=== PATIENT | male | born 1950 | race Caucasian/White ===

== ENCOUNTER 2018-04-01 14:22 | Observation (INO) | payer OTHER ==
--- NOTE | 2018-04-01 14:42 | CPEKG ---
Heart Rate: 78 RR Interval: 769 P-R Interval: 156 QRSD Interval: 98 QT Interval: 400 QTC Interval: 456 P [place]: 65 QRS [place]: 79 T Wave [place]: 57 EKG Severity - NORMAL ECG - EKG Impression: SINUS RHYTHM Electronically Signed By: Durga Carey 03-Apr-2018 22:54:50
--- NOTE | 2018-04-01 14:49 | EDPHY ---
H & P Stated Complaint: CP/FLUSHED FEELING IN HEAD AND TIGHTNESS IN NECK Time Seen by Provider: 04/01/18 14:42 - Personal History Current Tetanus Diphtheria and Acellular Pertussis (TDAP): Yes - Medical/Surgical History Hx Asthma: No Hx Chronic Respiratory Disease: No Hx Diabetes: No Hx Cardiac Disease: Yes Hx Renal Disease: No Hx Cirrhosis: No Hx Alcoholism: No Hx HIV/AIDS: No Hx Splenectomy or Spleen Trauma: No Other PMH: CARDIAC STENTS/ MELANOMA BOWEL SURG - Social History Smoking Status: Never smoked Constitutional: Initial Vital Signs Temperature (C) 36.8 C 04/01/18 14:25 Heart Rate 77 04/01/18 14:25 Respiratory Rate 18 04/01/18 14:25 Blood Pressure 159/108 H 04/01/18 14:25 O2 Sat (%) 92 04/01/18 14:25 O2 Delivery Mode Room Air Allergies/Adverse Reactions: sulfamethoxazole [From Bactrim] Allergy (Verified 04/01/18 14:23) trimethoprim [From Bactrim] Allergy (Verified 04/01/18 14:23) Home Medications: Medication Instructions Recorded Atorvastatin Calcium 04/01/18 Carvedilol 04/01/18 Levothyroxine 04/01/18 Ramipril 04/01/18 Medical Decision Making - Diagnostics Imaging Results: Imaging Impressions Chest X-Ray 04/01/18 14:51 Impression: No acute findings in the chest. Imaging: I viewed and interpreted images myself ED Course/Re-evaluation: CHIEF COMPLAINT: Chest pain HISTORY OF PRESENT ILLNESS: The patient is a 68 y/o male with a history of 3 cardiac stents and melanoma ( on chronic steroids) complaining of radiating mid-sternal chest pain, onset this morning. The pain is now radiating to his neck and jaw and he feels flushed. While walking this pain is exacerbated. This pain does not feel similar to his symptoms prior to having the cardiac stents placed 10 years ago. Around one year ago he stopped taking his anticoagulants that he was placed on following the stent placement. He does take a baby Aspirin daily. Denies headache, numbness, paresthesias, fever, abdominal pain, urinary or bowel complaints. REVIEW OF SYSTEMS: A 10 point review of systems was performed and is negative with the exception of the elements mentioned in the history of present illness. PHYSICAL EXAM: HR, BP, O2 Sat, RR. Temp noted General Appearance: Alert, well hydrated, appropriate, and non-toxic appearing. Head: Atraumatic without scalp tenderness or obvious injury Eyes: Pupils equal, round, reactive to light and accommodation, EOMI, no trauma , no injection. Ears: Clear bilaterally, no perforation, normal landmarks Nose: Atraumatic, no rhinorrhea, clear. Throat: There is no erythema or exudates, no lesions, normal tonsils, mucus membranes moist. Neck: Supple, nontender, no lymphadenopathy. Respiratory: No retractions, no distress, no wheezes, and no accessory muscle use. Lungs are clear to auscultation bilaterally. Cardiovascular: Regular rate and rhythm, no murmurs, rubs, or gallops. Bilateral carotid, radial, dorsalis pedis, and posterior tibial pulses intact. Good capillary refill all extremities. Gastrointestinal: Abdomen is soft, nontender, non-distended, no masses, no rebound, no guarding, no peritoneal signs. Musculoskeletal: Normal active ROM of all extremities, atraumatic. Neurological: Alert, appropriate, and interactive. Non-focal neuro. Skin: No rashes, good turgor, no nodules on palpation. Past medical history: Hypercholesteremia Past surgical history: Cardiac stents x 3, melanoma bowel surgery Family history: Denies Social history: at bedside, visiting [place] from [place], retired DIAGNOSTICS/PROCEDURES/CRITICAL CARE TIME: EKG: The 12 lead EKG was interpreted by myself as sinus rhythm with a rate of 78 , inverted T-waves in V2. See hard copy and/or "tracemaster" electronic copy for interpretation. Chest x-ray: No acute findings. Repeat EKG:The 12 lead EKG was interpreted by myself. Sinus rhythm, possible lateral ST depression. See hard copy and/or "tracemaster" electronic copy for interpretation. DIFFERENTIAL DIAGNOSIS: The differential diagnosis for the patient's chest pain included but was not limited to myocardial ischemia, pulmonary embolus, chest wall pain, pleural inflammation, and pulmonary infectious causes. MEDICAL DECISION MAKING: The patient is a 68 y/o male with a history of 3 cardiac stents and melanoma ( on chronic steroids) presenting with radiating mid-sternal chest pain, onset this morning. He has a normal physical exam. EKG, labs, and chest x-ray ordered. 1437: EKG interpreted by myself as sinus rhythm with a rate of 78, inverted T- waves in V2. 1508: Patient has a negative troponin. 1512: Consulted with Dr. Holden, technical expert, regarding this patient. 1 Nitroglycerin administered. 1544: Echo at bedside. CHARLES Valadez for cardiology, at bedside. Repeat EKG shows some lateral ST depression. Patient is still symptomatic. 1657: Spoke with Dr. Holden, technical expert. Patient will have repeat troponin. He will not undergo cardiac catheterization at this time. Plan to administer 25mg PO metoprolol. Plan for admission for further observation. 1722: Consulted with Dr. Mendoza, hospitalist. She accepts admission for chest pain, acute coronary syndrome. - Data Points Laboratory Results: Laboratory Results 04/01/18 14:45 04/01/18 14:45 04/01/18 04/01/18 04/01/18 17:09 17:00 14:58 WBC RBC Hgb Hct MCV MCH MCHC RDW Plt Count MPV Neut % (Auto) Lymph % (Auto) [place] % (Auto) Eos % (Auto) Baso % (Auto) Nucleat RBC Rel Count Absolute Neuts (auto) Absolute Lymphs (auto) Absolute Monos (auto) Absolute Eos (auto) Absolute Basos (auto) Absolute Nucleated RBC Immature Gran % Immature Gran # PT INR APTT D-Dimer Sodium Potassium Chloride Carbon Dioxide Anion Gap BUN Creatinine Estimated GFR Glucose Calcium POC Troponin I 0.00 ng/mL ng/mL 0.00 ng/mL ng/mL (0.00-0.08) (0.00-0.08) Troponin I Cancelled NT-Pro-B Natriuret Pep 04/01/18 04/01/18 04/01/18 14:52 14:52 14:45 WBC RBC Hgb Hct MCV MCH MCHC RDW Plt Count MPV Neut % (Auto) Lymph % (Auto) [place] % (Auto) Eos % (Auto) Baso % (Auto) Nucleat RBC Rel Count Absolute Neuts (auto) Absolute Lymphs (auto) Absolute Monos (auto) Absolute Eos (auto) Absolute Basos (auto) Absolute Nucleated RBC Immature Gran % Immature Gran # PT 13.0 SEC SEC (12.0-15.0) INR 0.96 (0.83-1.16) APTT 30.1 SEC SEC (23.0-38.0) D-Dimer 0.71 ug/mLFEU H ug/mLFEU (0.00-0.50) Sodium 142 mEq/L mEq/L (135-145) Potassium 4.1 mEq/L mEq/L (3.3-5.0) Chloride 102 mEq/L mEq/L (97-110) Carbon Dioxide 33 mEq/l H mEq/l (22-31) Anion Gap 7 mEq/L L mEq/L (8-16) BUN 16 mg/dL mg/dL (7-23) Creatinine 0.8 mg/dL mg/dL (0.7-1.3) Estimated GFR > 60 Glucose 115 mg/dL H mg/dL (70-100) Calcium 9.0 mg/dL mg/dL (8.5-10.4) POC Troponin I Troponin I NT-Pro-B Natriuret Pep 91 pg/mL pg/mL (0-125) 04/01/18 14:45 WBC 6.36 10^3/uL 10^3/uL (3.80-9.50) RBC 4.19 10^6/uL L 10^6/uL (4.40-6.38) Hgb 12.9 g/dL L g/dL (13.7-17.5) Hct 39.0 % L % (40.0-51.0) MCV 93.1 fL fL (81.5-99.8) MCH 30.8 pg pg (27.9-34.1) MCHC 33.1 g/dL g/dL (32.4-36.7) RDW 12.5 % % (11.5-15.2) Plt Count 242 10^3/uL 10^3/uL (150-400) MPV 9.1 fL fL (8.7-11.7) Neut % (Auto) 73.4 % % (39.3-74.2) Lymph % (Auto) 17.6 % % (15.0-45.0) [place] % (Auto) 7.2 % % (4.5-13.0) Eos % (Auto) 1.1 % % (0.6-7.6) Baso % (Auto) 0.5 % % (0.3-1.7) Nucleat RBC Rel Count 0.0 % % (0.0-0.2) Absolute Neuts (auto) 4.67 10^3/uL 10^3/uL (1.70-6.50) Absolute Lymphs (auto) 1.12 10^3/uL 10^3/uL (1.00-3.00) Absolute Monos (auto) 0.46 10^3/uL 10^3/uL (0.30-0.80) Absolute Eos (auto) 0.07 10^3/uL 10^3/uL (0.03-0.40) Absolute Basos (auto) 0.03 10^3/uL 10^3/uL (0.02-0.10) Absolute Nucleated RBC 0.00 10^3/uL 10^3/uL (0-0.01) Immature Gran % 0.2 % % (0.0-1.1) Immature Gran # 0.01 10^3/uL 10^3/uL (0.00-0.10) PT INR APTT D-Dimer Sodium Potassium Chloride Carbon Dioxide Anion Gap BUN Creatinine Estimated GFR Glucose Calcium POC Troponin I Troponin I NT-Pro-B Natriuret Pep Medications Given: Discontinued Medications Metoprolol Tartrate (Lopressor) 25 mg PO EDNOW ONE Stop: 04/01/18 17:00 Last Admin: 04/01/18 17:21 Dose: 25 mg Nitroglycerin (Nitro-Bid 2%) 1 inch TP EDNOW ONE Stop: 04/01/18 15:15 Last Admin: 04/01/18 15:24 Dose: 1 inch Point of Care Test Results: Chemistry 04/01/18 04/01/18 17:09 14:58 POC Troponin I 0.00 ng/mL ng/mL 0.00 ng/mL ng/mL (0.00-0.08) (0.00-0.08) Departure - Departure Disposition: [facility] Inpatient Acute Clinical Impression: Acute coronary syndrome Chest pain Qualifiers: Chest pain type: other chest pain Qualified Code(s): R07.89 - Other chest pain Condition: Fair Referrals: Patient,NotPresent [Unknown] - As per Instructions Report Scribed for: Pan Barber Report Scribed by: Esme Burton Date of Report: 04/01/18 Time of Report: 14:46
[2018-04-01 14:57] LABS: PLATELET COUNT 242 10^3/uL (150-400)
[2018-04-01] MEDS ORDERED: NITROGLYCERIN 2% 1 GM PACKET TP ONE (15:14)
[2018-04-01 15:42] LABS: INR 0.96 (0.83-1.16)
--- NOTE | 2018-04-01 16:11 | ECHO ---
[email or web address] [address] [address] Main: [phone] Fax: [email or web address] Echocardiogram Name: HARJINDER PHILIP MR#: [id number] Study Date: 04/01/2018 Study Time: 03:52 PM Date of : 1950 Age: 68 year(s) Height: 180.3 cm (71 in.) Weight: 93.44 kg (206 lb.) BSA: 2.14 m2 Gender: Male Examination: Echo Indication: Chest Pain, Hx of stents Image Quality: Contrast: Requested by: Pan Barber BP: 128 mmHg/94 mmHg Heart Rate: Rhythm: Normal sinus rhythm Indication: Chest Pain, Hx of stents Procedure Staff Package Delivery Room Service Runner: Sina Nelson RDCS Reading Physician: Donya Holden MD Requesting Provider: Conclusions: Normal size left ventricle. Mild concentric LV hypertrophy. Normal global systolic LV function. EF is 77 %. Normal size right ventricle. Normal RV function. No significant valvular disease. No prior echo Measurements: Chambers Valvular Assessment AV/MV Valvular Assessment TV/PV Normal Normal Normal Name Value Range Name Value Range Name Value Range Ao Danielle (MM): 3.2 cm (2.2 cm-3.7 MV E Vmax: 0.74 m/s ( - ) PV Vmax: 1.09 m/s (0.6 m/s-0.9 cm) MV A Vmax: 0.65 m/s ( - ) m/s) IVSd (2D): 1.1 cm (0.6 cm-1.1 MV E/A: 1.14 ( - ) PV PGmax: 5 mmHg ( - ) cm) LVDd (2D): 4.2 cm (4.2 cm-5.9 cm) LVDs (2D): 2.3 cm (2.1 cm-4 cm) LVPWd (2D): 1.1 cm (0.6 cm-1 cm) LVEF (2D): 77 (>=54 %) Continued Measurements: Chambers Valvular Assessment AV/MV Name Value Name Value LADs Lon.7 cm MV E/E' Septal: 8.50 LA Area: 14.1 cm2 MV E/E' Lateral: 12.30 Patient: HARJINDER PHILIP Study Date: 04/01/2018 Page 1 of 2 03:52 PM Findings: Left Ventricle: Normal size left ventricle. Mild concentric LV hypertrophy. Normal global systolic LV function. EF is 77 %. No regional wall motion abnormality. Grade 2 diastolic dysfunction (pseudonormalized LV filling pattern). Right Ventricle: Normal size right ventricle. Normal RV function. Left Atrium: The left atrium is normal in size. Right Atrium: The right atrium is normal in size. Mitral Valve: The mitral valve is normal in appearance and function. There is no mitral valve regurgitation. Aortic Valve: The aortic valve is normal in appearance and function. There is no aortic valve regurgitation. Tricuspid Valve: The tricuspid valve is normal in appearance and function. There is no tricuspid valve regurgitation. Pulmonic Valve: The pulmonic valve is normal in appearance and function. Aorta: The aorta is normal. Pericardium: No pericardial effusion. Exam Comments: (No Signature Object) Patient: HARJINDER PHILIP Study Date: 04/01/2018 Page 2 of 2 03:52 PM D:_[id number]
--- NOTE | 2018-04-01 16:31 | CPEKG ---
Heart Rate: 70 RR Interval: 857 P-R Interval: 164 QRSD Interval: 96 QT Interval: 404 QTC Interval: 436 P [place]: 54 QRS [place]: 75 T Wave [place]: 75 EKG Severity - BORDERLINE ECG - EKG Impression: SINUS RHYTHM EKG Impression: BORDERLINE T ABNORMALITIES, ANT-LAT LEADS Electronically Signed By: Amber Leach 04-Apr-2018 14:35:20
[2018-04-01] MEDS ORDERED: METOPROLOL TARTRATE 25 MG TAB PO ONE (16:59)
[2018-04-01] MEDS ORDERED: ONDANSETRON 4 MG/2 ML VIAL IVP PRN (17:29)
[2018-04-01] MEDS ORDERED: ONDANSETRON DISINTEGRATING 4 MG TAB PO PRN (17:29)
[2018-04-01] MEDS ORDERED: ACETAMINOPHEN 325 MG TAB PO PRN (17:29)
--- NOTE | 2018-04-01 18:11 | GCON ---
[f rep st] CONSULTATION CARDIOLOGY CONSULTATION. SUPERVISING MANAGER PHP: Dr. Donya Holden. INDICATION: Neck flushing with mild jaw pressure, with mildly abnormal electrocardiogram with patient with previous history of cardiac disease and stents. REFERRING PHYSICIAN: Dr. Pan Barber of Emergency Department Services. HISTORY OF PRESENT ILLNESS: Mr. Grimm is a 68-year-old male who reports significant past history that includes coronary artery disease, with previous stenting of the LAD and circumflex artery approximately 15 years ago while he lived in [place]. He also reports significant history of hypertension, hyperlipidemia, and history of melanoma cancer first diagnosed 5 years ago, with a recurrence 3 years ago. He reports he did have a PET scan done approximately a week ago, and was told he was free of any signs at this time. He is currently visiting from [place], where he lives. He reports arriving to [place] last evening and going to his hotel in [place], having a mild dinner, and then when he was carrying his bags up to his bedroom last evening, developing a lower neck pressure/pain radiating on both sides up to his jaws, with also a flush sensation. He reports no chest pressure or pain. He did report potentially mild shortness of breath with the symptoms, but denies any palpitations and no nausea or diaphoresis. He reported this was a first time event for him. He did go up and rest and take a shower, and reporting symptoms did subside. He reports waking up this morning feeling fine , visiting [employer] and touring, walking around, and later after a few hours , developing similar symptoms while walking on [employer]. He did go to urgent care, who gave him 4 aspirin, and told him to come to [facility] for further evaluation. Upon arrival, he reports the pressure had significantly subsided, reporting only a mild sensation in his left neck at the time of my examination. He did undergo electrocardiogram, which initial EKG showed sinus rhythm, normal axis, with mildly flattened to inverted T-waves in V2, but no other acute ST or T- wave abnormalities. His initial troponin was negative. An echocardiogram was done at this time, and it was noted that he had a normal LV systolic function with an ejection fraction of 77%. He reports when he was asked how his current symptoms in comparison to his previous symptoms that he had prior to his stenting, he describes those symptoms as a more midsternal chest pressure with increased shortness of breath and some nausea, which he has not experienced with his most recent 2 episodes. He reports prior to this episode he has been in his normal state of health. He reports no recent fevers, chills, or night sweats. He denies any orthopnea, PND, edema, near-syncope, or syncopal events. Reports no symptoms suggestive of TIA or CVA. PAST MEDICAL HISTORY: Patient with significant past medical history that includes CAD, hypertension, hyperlipidemia, melanoma. PAST SURGICAL HISTORY: Includes 2 surgeries for his melanoma cancer, one 5 years ago and one 3 years ago; cholecystectomy; percutaneous coronary intervention 15 years ago with stent implantation. He does have his stent cards with him, which it appears that he had a 2.5 x 13 Cypher stent implanted into his circumflex and a 3.5 x 33 stent implanted to his LAD. FAMILY HISTORY: Patient reports besides his past history of early onset of CAD , he has no significant family history of coronary artery disease at early onset age, but does report family history of hypertension, reporting mother, father, and brother who is 5 years older than him. He also reports father passing away at age 50 of colon cancer. SOCIAL HISTORY: He is retired. He used to be a contractor. He is . He has no children. He denies any history of tobacco abuse. He does report rare alcohol use. Denies any illicit drug use. ALLERGIES: Reported allergies to Bactrim. MEDICATIONS: At home, he is uncertain of the dosage, but he is on atorvastatin , carvedilol, levothyroxine, ramipril. He also reports he is on a medication that he is uncertain of the name for his history of melanoma cancer. REVIEW OF SYSTEMS: A 10-point review of systems done on this patient all negative except as mentioned above. PHYSICAL EXAMINATION: GENERAL APPEARANCE: Medium built, mildly obese, male. He is alert and oriented to person, place, time, situation, and appears to be under no acute distress. VITAL SIGNS: Current vital signs are blood pressure of 132/98, heart rate of 77, sinus rhythm while on the monitor. Respirations are 18, saturating 95% on room air. Noted on admission, temperature of 36.8 degrees Celsius. HEENT: Head is normocephalic. Lips and tongue are pink and moist with no signs of cyanosis. Conjunctivae pink. NECK: Trachea is midline, +2 carotid pulses bilateral. No auscultated bruits, no jugular vein distention. RESPIRATORY: Lungs are clear to auscultation, no rhonchi, rales, or wheezes. No accessory muscle use. No intercostal muscle retraction noted. CARDIAC: Regular rate, regular rhythm, S1, S2, no S3, S4, gallops, rubs, or murmurs noted. ABDOMEN: Soft, nontender, bowel sounds x4 quadrants, no organomegaly, no palpable masses. SKIN: [place], warm, dry, no cyanosis, no clubbing, no peripheral edema. VASCULAR: +2 carotids bilateral, + 2 radials bilateral, +1 dorsal pedal and posterior tibial pulses bilateral. LABORATORY STUDIES: Laboratory studies drawn today show WBC of 6.36, hemoglobin of 12.9, hematocrit of 39.0, platelet count of 242. INR of 0.96. Noted mildly elevated D-dimer at 0.71. Sodium 142, potassium 4.1, chloride 102 , CO2 of 33, BUN 16, creatinine 0.8, glucose 115, calcium 9.0. Initial troponin of 0.00 and proBNP of 91. IMAGING STUDIES: Initial electrocardiogram as mentioned above. Repeated electrocardiogram done today at 1627 shows sinus rhythm, normal axis, noted inverted T-waves in V1 and V2, with possible nonspecific T-wave abnormalities in lateral leads. Chest x-ray showing no acute findings. Echocardiogram showing normal LV size with mild concentric LVH, normal LV systolic function. EF was estimated at 77%. Normal RV size, normal RV function , no significant valvular heart disease. ASSESSMENT AND PLAN: 1. Jaw pressure with flushing sensation: Patient reports this is a new symptom , it did come on with exertion 2 times in the last 24 hours. It is not similar pressure as to what he had prior to his stenting. It is not associated with nausea or diaphoresis. He does have known history of coronary artery disease with previous stenting of the left anterior descending and the circumflex. He reports no episodes of chest pressure or pain. He is noted to have a normal troponin level. Symptoms are somewhat atypical. Potentially could be related to altitude and dehydration. But with his past history of coronary artery disease, does raise concerns. We recommend that he be admitted to the PCU, for overnight observation. There, he should have cycle troponin levels. If they are positive, we will plan for him to have a cardiac catheterization. If negative, then have him undergo ETT MPI study. He will receive a dose of metoprolol tartrate here in the emergency department. We will also hydrate him gently with IV fluid. He will be made NPO after midnight, in case he may need cardiac catheterization. Patient with mildly elevated D-dimer. Plan for CT of chest. 2. History of coronary artery disease: Patient reports new jaw as mentioned above pain, but denies similar symptoms as to what he had prior to his ischemic events. Would continue patient on current antiplatelet therapy of aspirin, and resume his home beta-edinson and SURYA-inhibitor, after pharmacy has reconcile his medications. Troponins as mentioned above. If he does develop chest pressure, or has significant elevated troponins, a cardiac catheterization can be done more urgently. 3. Hypertension: Blood pressure mildly elevated. Again resume home medications. Monitor. May adjust his home medications if necessary, once they are clarified by pharmacy. 4. Hyperlipidemia: Continue on home dose of atorvastatin when reconciled by pharmacy. Patient assessment plan or discussed with Dr. Barber of the emergency department. Patient will be admitted to the hospitalist services. Thank you for this consultation. We will be glad to follow along with this patient's care with you.. /[id number]/[id number] MTDD
[2018-04-01] MEDS ORDERED: NS 1,000 ML IV ONE (18:21)
[2018-04-01] MEDS ORDERED: IOPAMIDOL (ISOVUE 370) 100 ML BTL IV ONE (18:53)
[2018-04-01] MEDS ORDERED: NS 1,000 ML IV SCH (19:00)
--- NOTE | 2018-04-01 19:36 | GHP ---
[f rep st] HISTORY AND PHYSICAL DATE OF ADMISSION: 04/01/2018 CHIEF COMPLAINT: Shortness of breath, neck tightness. HISTORY OF PRESENT ILLNESS: A 68-year-old male with history of coronary artery disease with 3 stents 15 years ago, hyperlipidemia, hypertension, presenting with shortness of breath. [facility]. After dinner, he was going to the car, bring ing their bags in, and noticed shortness of breath. His face flushed and tightness in his neck. He cannot tell me how long this lasted. There was no chest pain or associated arm radiation, numbness, or tingling. He went to bed without issue, ate breakfast. [place] [facility] [place] [facility] to get in from the rain and developed the same set of symptoms. He did not drink mu ch water today but had several glasses of iced tea and coffee. No fevers, chills, or sweats. Has 10 stools a day, which has been chronic for him. No hematochezia or melena. REVIEW OF SYSTEMS: I completed a 10-point review of systems, negative except as in HPI. PAST MEDICAL HISTORY: Melanoma, status post chemo, status post immune-modulating medication, a coupl e surgeries, coronary disease, 3 stents 15 years ago, hyperlipidemia, hypertension, adrenal insuffici ency, history of diverticulitis. PAST SURGICAL HISTORY: Cholecystectomy, partial colectomy secondary to diverticulitis. FAMILY HISTORY: Father with colon cancer. Mother healthy at 86. ALLERGIES: Bactrim. HOME MEDICATIONS: Ramipril, levothyroxine, Coreg, atorvastatin. PHYSICAL EXAMINATION: VITAL SIGNS: Temperature 36.8, blood pressure is 159/108, now 152/90, heart r ate in the 60s, respirations 16, and 98% on 2 L. GENERAL: He is an overweight male in no acute dist ress. HEENT: PERRLA. Moist mucous membranes. CV: Regular rate and rhythm. LUNGS: Clear. ABDOMEN : Soft, nontender, nondistended. Positive bowel sounds. : No Pagan. MUSCULOSKELETAL: 5/5 upper lower extremity strength. NEURO: 2 through 12 intact. PSYCH: Alert and oriented x3. LABS: D-dimer is 0.71. INR is 0.6. Sodium 142, potassium 4.1, chloride 102, carbon dioxide 33, BUN is 16, creatinine 0.8, glucose 115, calcium 9. Troponin 0.00. BNP is 91. WBC 6, hemoglobin 12, he matocrit 39, platelets 242. Chest x-ray is personally reviewed by me. No effusion. EKG was personally reviewed by me. T-wave inversion in II, flattening in V3. Echocardiogram, normal EF. No old to compare. ASSESSMENT AND PLAN: Problems: 1. Shortness of breath: Differential, acute coronary syndrome versus pulmonary embolism versus alti tude sickness. Initial troponin and echocardiogram negative. D-dimer is elevated. CTA is pending. Was evaluated by Cardiology. We will monitor overnight stress test in the morning. 2. Coronary artery disease. Continue beta edinson, statin. 3. History of melanoma, stable. 4. Hypertension. Continue lisinopril. 5. Deep venous thrombosis prophylaxis with Lovenox. DISPOSITION: Patient warrants observation, admission, for possible anginal equivalent requiring seri al troponin, telemetry, and cardiac evaluation. /[id number]/MODL
[2018-04-01] MEDS ORDERED: ATORVASTATIN CALCIUM 40 MG TAB PO SCH (21:00)
[2018-04-01] MEDS: CARVEDILOL 3.125 MG TAB PO SCH (21:25)
[2018-04-02] MEDS ORDERED: LEVOTHYROXINE 112 MCG TAB PO SCH (06:00)
[2018-04-02] MEDS ORDERED: NITROGLYCERIN 0.4 MG BTL SL ONE (07:56)
[2018-04-02] MEDS ORDERED: MULTIVITAMINS 1 EACH TAB PO SCH (09:00)
[2018-04-02] MEDS ORDERED: HYDROCORTISONE 10 MG TAB PO SCH (09:00)
[2018-04-02] MEDS ORDERED: Lactobacillus Acidophilus [Probiotic] 1 EACH PO SCH (09:00)
[2018-04-02] MEDS ORDERED: ENOXAPARIN 40 MG/0.4 ML SYR SC SCH (09:00)
[2018-04-02] MEDS ORDERED: RAMIPRIL 5 MG CAP PO SCH ×2 (09:00)
[2018-04-02] MEDS ORDERED: REGADENOSON 0.4 MG/5 ML SYR IVP ONE ×2 (09:02→09:57)
--- NOTE | 2018-04-02 09:22 | SOAPPROG ---
CHARAN Progress Note Assessment/Plan: Assessment:1. sob..no evidence of mi or chf...nuc tm today...if normal then ok from standpoint 2. anemia..no active bleeding...? chronicity...? contributing to sob Plan:1. nuc tm today 04/02/18 09:20 Subjective: pt still with some oxugen desats requiring oxygen...no evidence of mi or arrhythmia....nuclear tm pending tosay Objective: Vital Signs Temp Pulse Resp BP Pulse Ox 37.3 C 87 19 152/85 H 91 L 04/02/18 08:02 04/02/18 08:02 04/02/18 08:02 04/02/18 08:02 04/02/18 08:02 04/01/18 04/02/18 04/03/18 05:59 05:59 05:59 Intake Total 600 Balance 600 PT 13.0 SEC (12.0-15.0) 04/01/18 14:52 INR 0.96 (0.83-1.16) 04/01/18 14:52 Physical Exam - Physical Exam Respiratory: lungs clear Cardiac/Chest: regular rate, rhythm, No edema, No JVD ICD10 Worksheet Patient Problems: Problems Problem Status Onset Acute coronary syndrome Acute Chest pain Acute
[2018-04-02 11:41] VITALS: BP 99/62
--- NOTE | 2018-04-02 12:00 | ASMTCMCOM ---
CM Note CM Note Notes: 04/02/2018 Case Management Note Pt admitted for evaluation of acute coronary syndrome. Met w/pt. JULIEN signed. Pt is independent in ADL's. Pt is to [facility] [phone]. There are no case management d/c needs identified. Case Management d/c poc: independent with follow up as directed. Case Management available if needs change. Date Signed: 04/02/2018 11:59 AM Electronically Signed By:Tootie Pedro RN
--- NOTE | 2018-04-02 13:09 | CPR ---
[f rep st] NONINVASIVE CARDIAC PROCEDURE REPORT DATE OF PROCEDURE: 04/01/2018 PROCEDURE: Exercise treadmill MPI study. SUPERVISING MEAT GRADER: Dr. Clifford Aguilar. INDICATION FOR PROCEDURE: Known history of coronary artery disease, reporting neck . PRE: After obtaining informed consent, the patient was placed on electrocardiogram. Initial EKG shows flattened T-wave in V2. Patient denies of any chest pain, pressure, or shortness of breath. Reports no jaw pain or symptoms that he had prior to admission. Initial vital signs: Blood pressure was 110/60, saturation 91% on room air. STRESS: 1. The patient was placed on exercise treadmill, following standard Dylon protocol, patient exercised for 3 minutes 17 seconds. 2. 4.6 METS. 3. Obtained a heart rate of 153 beats per minute, which was 99% of MPHR. 4. The patient had submillimeter upsloping ST depression in inferior lateral leads. Not equivocal for ischemia. 5. Patient reported head pressure, but no jaw, neck pain or chest pressure. 6. Patient's BP response at rest 110/60, peak 150/80. 7. The patient did note to have SpO2 drop to 84% at peak exercise on room air. 8. No arrhythmias were noted. 9. Test was stopped due to maximum effort. 10. Garcia treadmill score of 3 placing him at intermediate risk RECOVERY: Patient recovered for 5 minutes with EKG and heart rate returning back to baseline. Patient did report improvement in head pressure, remained asymptomatic of chest pressure or pain. Final blood pressure of 118/60. Vital signs are stable. He was taken to Nuclear Medicine for post-stress imaging. IMPRESSION: 68-year-old male with previous history of coronary artery disease visiting from [facility] to [place]. Reporting episodes of neck pain and head pressure with some exertion prior 2 days. Patient also reports symptoms are significantly different compared with chest pressure that he had prior to chest pressure pain. Garcia treadmill score: No significant ST changes at peak exercise suggesting of ischemia, but intermediate Garcia treadmill score due to poor exercise effort. Post-stress imaging pending. Results discussed with both Jeff Medina, and Dr. Pemberton of hospital services. /[id number]/MODL MTDD
[2018-04-02] MEDS: CARVEDILOL 3.125 MG TAB PO SCH (14:31)
--- NOTE | 2018-04-02 16:26 | PDHOMEO2F ---
Home Oxygen Face to Face Home Orders: I certify that a physician or a nurse practitioner or physician's administrative assistant receptionist has had a [id number] encounter with this patient on the date of this order due to the diagnosis listed, which relates to the primary reason the patient requires home oxygen. Alternative treatments have been tried, or considered, and deemed ineffective. It is anticipated that supplemental oxygen will result in improvement with treatment. Home oxygen qualifying diagnosis: hypoventilation syndrome, hypoxic respiratory failure. SpO2 on room air (%): 75 Frequency of home oxygen needed: continuous Home oxygen liters per minute: 2 Home oxygen delivery device: nasal cannula Concentrator: Yes E-tanks for mobility and back up: Yes If ordering portable O2, is the patient mobile in the home?: Yes I certify that, based on these findings, the home oxygen is medically necessary for this patient for the following length of time. Length of time home oxygen needed: 1 week (Pt going back to [place] and not hypoxic at sea level.)
--- NOTE | 2018-04-02 16:37 | ASMTDCNOTE ---
Case Management Discharge Discharge Order Complete? Answers: Yes Patient to Obtain Answers: Independently Medications Transportation Arranged Answers: Family/Friends Family Notified Answers: Yes Discharge Comments Notes: 04/02/2018 Case Management Note Pt will d/c to hotel with his . Plans to fly home to [place] tomorrow. O2 has been arranged. No further case management d/c needs identified. Date Signed: 04/02/2018 04:36 PM Electronically Signed By:Tootie Pedro RN
--- NOTE | 2018-04-02 16:37 | ASDISCHSUM ---
Discharge Information Plan Status:Home with No Needs Medically Cleared to Leave:04/02/2018 Discharge Date:04/02/2018 CM D/C Disposition:Home, Routine, Self-Care ADT D/C Disposition:Home, Routine, Self-Care Projected Discharge Date:04/02/2018 Transportation at D/C: Discharge Delay Reason: Follow-Up Date:04/02/2018 Discharge Slot: Final Diagnosis: Placement Information Patient Contact Information Contact Name:HAMILTON Relationship: Address:[address] [place] Work Phone: City:[facility] Phone: [facility]/Zip Code:[place] [address] Email: Financial Information Financial Class:Medicare Advantage Plans Primary Plan Desc:RASHID MEDICARE ADV Primary Plan Number:[id number] Secondary Plan Desc: Secondary Plan Number: Assessment Information [facility] CM Progress Note CM Note CM Note Notes: 04/02/2018 Case Management Note Pt admitted for evaluation of acute coronary syndrome. Met w/pt. ANAYA signed. Pt is independent in ADL's. Pt is to [facility] [phone]. There are no case management d/c needs identified. Case Management d/c poc: independent with follow up as directed. Case Management available if needs change. Date Signed: 04/02/2018 11:59 AM Electronically Signed By:Tootie Pedro RN LACE LACE Length of stay for Answers: 1 day current admission Acuity / Level of Answers: No Care: Did the patient have an inpatient admission? Comorbidities - select Answers: Any tumor (including all that apply lymphoma or leukemia) Coronary Artery Disease Other Notes: cardiac stents x 3, hyperlipidemia, adre nal insufficiency, h/o diverticulitis # of Emergency department Answers: 1-2 visits in the last 6 months Score: 7 Date Signed: 04/02/2018 04:34 PM Electronically Signed By:Tootie Pedro RN Case Management Discharge Plan Note Case Management Discharge Discharge Order Complete? Answers: Yes Patient to Obtain Answers: Independently Medications Transportation Arranged Answers: Family/Friends Family Notified Answers: Yes Discharge Comments Notes: 04/02/2018 Case Management Note Pt will d/c to [facility] with his . Plans to fly home to [place] tomorrow. O2 has been arranged. No further case management d/c needs identified. Date Signed: 04/02/2018 04:36 PM Electronically Signed By:Tootie Pedro RN Intervention Information Intervention Type:*JULIEN-Signed Date of Service:04/02/2018 11:56 AM Patient Type:Observation Staff Member:ANDREW Pedro Hillary Hours: Discipline: Severity: Comment:
--- NOTE | 2018-04-02 18:10 | GDS ---
[f rep st] DISCHARGE SUMMARY DIAGNOSES: 1. Hypoxic respiratory failure, likely multifactorial, with some hypoventilation. 2. History of melanoma, status post chemotherapy. 3. Coronary artery disease status post 3 stents. 4. Dyslipidemia. 5. Hypertension. 6. Adrenal insufficiency. 7. History of diverticulitis. PROCEDURES DONE: 1. Echocardiogram. Normal size left ventricle, moderate LVH, ejection fraction of 77%. Normal RV f unction. 2. Nuclear myocardial perfusion stress test negative for ischemia. 3. Bilateral lower extremity Dopplers negative for DVT. 4. CT angiogram of the chest negative for pulmonary embolus, normal lung parenchyma. CONSULTATIONS: Cardiology, Dr. Clifford Aguilar. HOSPITAL COURSE: The patient is a 68-year-old admitted with shortness of breath. He is traveling fr [facility] to [place]. Upon arriving, he became increasingly short o f breath and was found to be hypoxic in the emergency department. Evaluation included echocardiogram , CT angiogram, as well as a nuclear stress test, all of which were negative. He also had an ABG, wh ich showed a normal AA gradient with room air, which was reassuring. However, despite the normal petra luation, he continued to have desaturations with minimal exercise that were symptomatic. I suspect asiya castellanos may have some hypoventilation syndrome, possible sleep apnea that may be contributing to this that is asymptomatic at sea level. Regardless, he is stable for discharge home. He plans on returning to [place] as soon as possible. I will discharge him with home oxygen. CONDITION ON DISCHARGE: Good. Vital signs are stable. Oxygen at rest is in the mid 90s. However, with minimal exercise, he does drop in the 80s. DISCHARGE MEDICATIONS: Please see discharge medication list. FOLLOWUP INSTRUCTIONS: He will follow up with his primary care provider in [place]. /[id number]/MODL
== END 2018-04-02 18:29 | disposition home or self-care (01) ==
LOC: F2W 19:20
PROVIDERS: ADMIT Internal Medicine; ATTEND Internal Medicine
DX: J96.91 Respiratory failure, unspecified with hypoxia (principal); I25.10 Atherosclerotic heart disease of native coronary artery without angina pectoris; E78.5 Hyperlipidemia, unspecified; I10 Essential (primary) hypertension; E27.40 Unspecified adrenocortical insufficiency; E86.9 Volume depletion, unspecified; Z85.820 Personal history of malignant melanoma of skin; Z87.19 Personal history of other diseases of the digestive system
CPT/HCPCS: 71046; 71275; 78451; 93005; 93017; 93306; 93970; 96360; 99285; A9500; G0378; J1650; J2785; Q9967; 84484-PO